=== PATIENT | male | born 1965 | race Caucasian/White ===

== ENCOUNTER 2023-01-31 07:18 | Emergency (ER) | payer BC, OTHER ==
[2023-01-31] MEDS ORDERED: Sodium Chloride 0.9% 10 ML Syringe FLUSH PRN (07:37)
[2023-01-31 07:44] LABS: HEMOGLOBIN 14.2 g/dL (14.0-18.0); MEAN CORPUSCULAR VOLUME 90.7 fL (80-100); PLATELET COUNT,PLT 296 10^3/uL (150-450); RED BLOOD CELL COUNT 4.74 10^6/uL (4.6-6.2); WHITE BLOOD CELL COUNT,WBC 14.1 10^3/uL (5.0-10.0)
[2023-01-31 07:52] LABS: BASOPHILS PERCENT AUTO 0.4 % (0.0-1.0); EOSINOPHILS PERCENT AUTO 0.9 % (1.0-3.0); LYMPHOCYTES PERCENT AUTO 16.1 % (20.5-50.1); MONOCYTES PERCENT AUTO 10.6 % (2-8)
[2023-01-31 07:58] LABS: PROTHROMBIN TIME 9.9 SEC (9.0-12.0)
[2023-01-31 08:10] LABS: A/G RATIO 0.9; ALBUMIN 3.4 g/dL (3.4-5.0); ANION GAP 12.2 mEq/L (7-13); BILIRUBIN TOTAL 0.4 mg/dL (0.2-1.0); BUN/CREATININE RATIO 14.1 (No establ ref range); CALCIUM 8.7 mg/dL (8.5-10.1); CREATININE 0.92 mg/dL (0.70-1.30); EST CRCL DRUG DOSING (CG) 99.58 mL/min; MAGNESIUM 1.7 mg/dL (1.8-2.4); POTASSIUM,K 4.2 mmol/L (3.5-5.1); PROTEIN TOTAL,TP 7.4 g/dL (6.4-8.2); TSH ULTRASENSITIVE 4.77 uIU/mL (0.36-3.74)
[2023-01-31 08:23] LABS: BAND PERCENT MAN 2 %; EOSINOPHILS PERCENT MAN 2 % (1-3); LYMPHOCYTES PERCENT MAN 14 % (20-50); MONOCYTES PERCENT MAN 5 % (2-8); SEG NEUTROPHILS PERCENT MAN 77 % (42-75)
[2023-01-31 08:30] VITALS: BP 163/87; PULSE 73
== END 2023-01-31 08:26 | disposition home or self-care (01) ==
LOC: DL.ED 07:18
DX: M25.512 Pain in left shoulder (principal); R94.6 Abnormal results of thyroid function studies; I10 Essential (primary) hypertension; Z91.09 Other allergy status, other than to drugs and biological substances; Z79.899 Other long term (current) drug therapy
CPT/HCPCS: 36415; 80053; 83735; 84443; 84484; 85025; 85610; 93005; 93010; 99283; 99284